=== PATIENT | female | born 1935 | race Caucasian/White ===

== ENCOUNTER 2017-05-02 10:07 | Day surgery (SDC) | payer MEDICARE, BC ==
[~2017-05-02] VITALS: Ht 157.5 cm; Wt 62.1 kg
[2017-05-02] VITALS (7 sets, daily range): BP systolic 155–183; BP diastolic 63–73
[2017-05-02] MEDS ORDERED: LEVOTHYROXINE75 MCG ORAL (10:56)
[2017-05-02] MEDS ORDERED: IBANDRONATE SO150 MG PO (10:56)
--- NOTE | 2017-05-02 11:55 | Discharge Instructions ---
Discharge Instructions Discharge Instructions Follow up with: one week For Surgical Patients Dressing Care: keep dry and clean For Congestive Heart Failure Reminder Report to your physician any weight gain of 5 pounds or more in one week. COLEMAN CORRALES May 02, 2017 11:55
[2017-05-02] MEDS ORDERED: LR 1000ml 1,000 ML IVLG SCH (11:58)
--- NOTE | 2017-05-02 11:58 | Pre-Procedure Note/Attestation ---
Pre-Procedure Note/Attestation Complete Prior to Procedure Planned Procedure: not applicable Procedure Narrative: closed reduction of nasal fracture Indications for Procedure Pre-Operative Diagnosis: nasal fracture Attestation I attest that I discussed the nature of the procedure; its benefits; risks and complications; and alternatives (and the risks and benefits of such alternatives ), prior to the procedure, with the patient (or the patient's legal personal service representative). I attest that, if there was a reasonable possibility of needing a blood transfusion, the patient (or the patient's legal personal service representative) was given the [facility] standardized written summary, pursuant to the Harry Inna Blood Safety Act ([place] Health and Safety Code # 1645, as amended). I attest that I re-evaluated the patient just prior to the surgery and that there has been no change in the patient's H&P, except as documented below: COLEMAN CORRALES May 02, 2017 11:58
--- NOTE | 2017-05-02 11:58 | Anethesia Preoperative Eval ---
Anesthesia Pre-op PMH/ROS General Date of Evaluation: May 02, 2017 Time of Evaluation: 12:45 Anesthesiologist: Dionisio ASA Score: ASA 3 Mallampati Score Class I : Soft palate, uvula, fauces, pillars visible Class II: Soft palate, uvula, fauces visible Class III: Soft palate, base of uvula visible Class IV: Only hard plate visible Mallampati Classification: Class II Surgeon: Ezequiel Diagnosis: Nasal Fx Surgical Procedure: Closed Reduction Nasal Fx Anesthesia History: none Family History: no anesthesia problems Allergies: Coded Allergies: IODINE (Verified Allergy, Severe, 05/02/17) HIVES,ITCHING Medications: see eMAR Past Medical History Cardiovascular: Reports: HTN Endocrine: Reports: DM, hypothyroidism Hematology/Immune: Reports: anemia, other - Breast CA PSxH Narrative: L Breast CA SX, MICKEY Anesthesia Pre-op Phys. Exam Physician Exam Last Vital Signs Date Time Temp Pulse Resp B/P (MAP) Pulse Ox O2 Delivery O2 Flow Rate FiO2 05/02/17 11:11 98.5 62 20 165/73 96 Room Air 98.5 Constitutional: NAD Neurologic: CN 2-12 intact Cardiovascular: RRR Respiratory: CTA Gastrointestinal: S/NT/ND Airway Exam Mallampati Score: Class II MO: limited ROM: limited Teeth: intact Anesthesia Pre-op A/P Risk Assessment & Plan Assessment: ASA 3 Plan: GA, BIS Status Change Before Surgery: Aung Mcdowell MD May 02, 2017 11:58
[2017-05-02] MEDS ORDERED: HYDROcodone/Acetamin 7.5/325 tab ORAL PRN (12:00)
[2017-05-02] MEDS ORDERED: Norco 5mg/325mg tab ORAL PRN (12:00)
[2017-05-02] MEDS ORDERED: Midazolam 2mg/2ml Inj ONE (12:00)
[2017-05-02] MEDS ORDERED: Ketorolac 30mg Inj IV PRN ×2 (12:00)
[2017-05-02] MEDS ORDERED: fentaNYL 100 mcg/2 mL IV PRN (12:00)
[2017-05-02] MEDS ORDERED: LR 1000ml ONE (12:00)
[2017-05-02] MEDS ORDERED: LORazepam Inj 2mg/ml 1ml IV PRN (12:00)
[2017-05-02] MEDS ORDERED: Hydromorphone 0.5mg/0.5ml inj IVP PRN (12:00)
[2017-05-02] MEDS ORDERED: Midazolam 2mg/2ml Inj IVP PRN (12:00)
[2017-05-02] MEDS ORDERED: Labetalol 5mg/ml 20ml vial IV PRN (12:00)
[2017-05-02] MEDS ORDERED: Alfentanil 2ml Inj ONE (12:00)
[2017-05-02] MEDS ORDERED: Propofol 200mg/20ml IV ONE (12:00)
[2017-05-02] MEDS ORDERED: Lidocaine 1% MPF 10mg/ml 5ml ONE (12:00)
[2017-05-02] MEDS ORDERED: Atropine Inj 1mg/10ml Syr IV PRN (12:00)
[2017-05-02] MEDS ORDERED: Sterile Water Irrig 1000ml IRRIG ONE (12:00)
[2017-05-02] MEDS ORDERED: oxyCODONE HCL/Acetaminophen 5/325mg ORAL PRN (12:00)
[2017-05-02] MEDS ORDERED: DiphenhydrAMINE 50mg/ml Inj IVP PRN (12:00)
--- NOTE | 2017-05-02 12:00 | 48 Hour Post Anesthesia Eval ---
Post Anesthesia Evaluation Procedure: Closed Reduction Nasal Fx Date of Evaluation: May 02, 2017 Time of Evaluation: 14:53 Blood Pressure Systolic: 152 0: 68 Pulse Rate: 66 Respiratory Rate: 18 Temperature (Fahrenheit): 98.2 O2 Sat by Pulse Oximetry: 99 Airway: patent Nausea: No Vomiting: No Pain Intensity: 1 Hydration Status: adequate Cardiopulmonary Status: Stable Mental Status/LOC: patient returned to baseline Follow-up Care/Observations: 0 Post-Anesthesia Complications: 0 Follow-up care needed: ready to discharge Aung Nichole MD May 02, 2017 12:00
--- NOTE | 2017-05-02 12:00 | Immediate Post-Op Evaluation ---
Immediate Post-Op Evalulation Immediate Post-Op Evalulation Procedure: Closed Reduction Nasal Fx Date of Evaluation: May 02, 2017 Time of Evaluation: 12:45 IV Fluids: 100 LR Blood Products: 0 Estimated Blood Loss: 0 Urinary Output: 0 Blood Pressure Systolic: 155 Blood Pressure Diastolic: 68 Pulse Rate: 67 Respiratory Rate: 16 O2 Sat by Pulse Oximetry: 99 Temperature (Fahrenheit): 97.6 Pain Score (1-10): 1 Nausea: No Vomiting: No Complications 0 Patient Status: awake, reacts, patent, none Hydration Status: adequate Aung Nichole MD May 02, 2017 12:00
--- NOTE | 2017-05-02 12:34 | Brief Operative Note ---
Immediate Post Operative Note Operative Note Pre-op Diagnosis: nasal fracture Procedure: closed reduction of nasal fracture Post-op Diagnosis: same Post-op Diagnosis: same as pre-op Surgeon: David Corrales MD Development Writer: none Anesthesia: moderate sedation Specimen: none Complications: none Condition: stable Estimated Blood Loss: none Drains: none Implant(s) used?: No DAVID CORRALES May 02, 2017 12:34
--- NOTE | 2017-05-03 16:30 | Operative Note - Dictated ---
DATE OF OPERATION: 05/02/2017 PREOPERATIVE DIAGNOSIS: Displaced nasal fracture. POSTOPERATIVE DIAGNOSIS: Displaced nasal fracture. PROCEDURE: Closed reduction of nasal fracture. SURGEON: David Nieves M.D. ANESTHESIA: IV sedation. INDICATION: This patient presents post injury with a displaced nasal fracture. She was brought to the operating room for closed reduction. DESCRIPTION OF PROCEDURE: The patient was placed supine on the operating table. IV sedation was administered. Using digital manipulation, the nasal fracture was then reduced and closed into the anatomic position. tape and Aquaplast was applied. The patient tolerated the surgery well. She was aroused and returned to recovery room in excellent condition. There was no blood loss. There were no intraoperative complications. David Nieves M.D. DR: DARINEL JOB#: [id number] CC:
== END 2017-05-02 13:45 | disposition home or self-care (01) ==
LOC: SUR 10:07
DX: S02.2XXA Fracture of nasal bones, initial encounter for closed fracture (principal); I10 Essential (primary) hypertension; E11.9 Type 2 diabetes mellitus without complications; E03.9 Hypothyroidism, unspecified; Z85.3 Personal history of malignant neoplasm of breast; Z88.8 Allergy status to other drugs, medicaments and biological substances; E78.5 Hyperlipidemia, unspecified; W19.XXXA Unspecified fall, initial encounter; Y93.9 Activity, unspecified; Y92.9 Unspecified place or not applicable; Z90.710 Acquired absence of both cervix and uterus; E78.00 Pure hypercholesterolemia, unspecified; M81.0 Age-related osteoporosis without current pathological fracture
CPT/HCPCS: 21315; J2250; J2405; J2704; J3490; J7120; 94003; 94150